=== PATIENT | female | born 1980 | race Caucasian/White ===

== ENCOUNTER 2017-02-22 13:04 | Emergency (ER) | payer MEDICAID ==
[~2017-02-22] VITALS: Ht 170.2 cm; Wt 52.0 kg
[~2017-02-22 13:04] MED LIST: ADDE20XR PO; BACT800T5 PO; CARA1TAB2 PO; GABA100C4 PO; GEOD60CA PO; MORP30SU PO
[2017-02-22 13:25] VITALS: BP 102/76; PULSE 85; RESP 18; TEMP 98.2; O2SAT 97
[2017-02-22] MEDS ORDERED: HYDR-3535 PO (13:49)
[2017-02-22] MEDS ORDERED: AMBI10TA PO (13:49)
[2017-02-22] MEDS ORDERED: MORP1TAB25 PO (13:49)
[2017-02-22] MEDS ORDERED: ZIPR40 PO (13:49)
[2017-02-22] MEDS ORDERED: XANA2TAB2 PO (13:49)
[2017-02-22] MEDS ORDERED: VIST50CA PO (13:49)
[2017-02-22] MEDS ORDERED: ALPRAZolam 1 MG TAB PO ONE (14:15)
--- NOTE | 2017-02-22 14:31 | PD ---
HPI Chief Complaint: Medication Refill Request Time Seen by Provider: 14:01 Travel History International Travel<30 days: No Contact w/Intl Traveler<30days: No Traveled to known affect area: No History of Present Illness HPI 37yo F with PMH of depression, PTSD presents to the ED requesting medication refill for her anxiety medications. States she takes xanax 2mg, ambien, geodon and has appointment with psychiatrist next week. States she ran out of her medication 3 days ago. Pt has a history of overdose. Denies any suicidal ideation, homicidal ideation, visual or auditory hallucinations. Denies any fever, chest pain, sob, n/v, abdominal pain, focal weakness or numbness. PFSH Past Medical History Arthritis: No Asthma: No Autoimmune Disease: Yes (fibromyalgia) Blood Disorders: No Bipolar Disorder: Yes Anxiety: Yes Depression: Yes Heart Rhythm Problems: No Cancer: Yes (OVARIAN, UTERINE, BLADDER 2004, BREAST) Cardiovascular Problems: No High Cholesterol: No Chemotherapy: Yes Chest Pain: No Congestive Heart Failure: No COPD: Yes Cerebrovascular Accident: No Coronary Artery Disease: Yes Diabetes: No Diminished Hearing: No Endocrine: No Fibromyalgia: Yes Gastrointestinal Disorders: Yes GERD: No Glaucoma: No Genitourinary: Yes (bladder cancer) Headaches: Yes (tmj) Hepatitis: No Hiatal Hernia: No Hypertension: No Immune Disorder: No Implanted Vascular Access Dvce: No Kidney Stones: No Medical other: Yes (LUPUS) Musculoskeletal: No Neurologic: No Psychiatric: Yes (PTSD) Reproductive: Yes (uterine/ovarian cancer) Respiratory: Yes (resp arrest from drug overdose) Immunizations Current: Yes Migraines: Yes Myocardial Infarction: No Radiation Therapy: Yes Renal Failure: No Schizophrenia: Yes Seizures: Yes Sickle Cell Disease: No Sleep Apnea: No Thyroid Disease: No Ulcer: Yes Tetanus Vaccination: > 5 Years Influenza Vaccination: Yes ?: Not Menopausal: Yes : 2 Para: 2 Miscarriage: 0 : 0 Past Surgical History Abdominal Surgery: Yes AICD: No Appendectomy: No Arteriovenous Shunt: No Cardiac Surgery: No Cholecystectomy: Yes Ear Surgery: No Endocrine Surgery: No Eye Surgery: No Genitourinary Surgery: No Gynecologic Surgery: Yes (LEEP) Hysterectomy: Yes Insulin Pump: No Joint Replacement: No Neurologic Surgery: No Oral Surgery: Yes (top plate) Pacemaker: No Thoracic Surgery: No Other Surgery: Yes (hysterectomy) Social History Alcohol Use: Yes (WINE [employer]) Tobacco Use: Yes (1 PPD) Substance Use: Yes (POLY SUBSTANCE ABUSE (DENIES)) Allergies-Medications (Allergen,Severity, Reaction): Coded Allergies: Ativan (Verified Allergy, Severe, Rash, 02/22/17) Reported Meds & Prescriptions Reported Meds & Active Scripts Active Reported Geodon (Ziprasidone) 40 Mg Cap 40 Mg PO BID Vistaril (Hydroxyzine Pamoate) 50 Mg Cap 50 Mg PO TID Ambien (Zolpidem Tartrate) 10 Mg Tab 10 Mg PO HS PRN Xanax (Alprazolam) 2 Mg Tab 2 Mg PO Q8H PRN Lortab (Hydrocodone-Acetaminophen) 10-325 Mg Tab 1 Tab PO Q8HR PRN Morphine ER (Morphine Sulfate) 30 Mg Tab 15 Mg PO Q8H Review of Systems Except as stated in HPI: all other systems reviewed are Neg Physical Exam Narrative GENERAL: 37yo F not in distresss. SKIN: Focused skin assessment warm/dry. HEAD: Atraumatic. Normocephalic. EYES: Pupils equal and round. EOMI. No scleral icterus. No injection or drainage. ENT: No nasal bleeding or discharge. Mucous membranes pink and moist. NECK: Trachea midline. No JVD. CARDIOVASCULAR: Regular rate and rhythm. No murmur appreciated. RESPIRATORY: No accessory muscle use. Clear to auscultation. Breath sounds equal bilaterally. GASTROINTESTINAL: Abdomen soft, non-tender, nondistended.No rebound tenderness or guarding. MUSCULOSKELETAL: No obvious deformities. No clubbing. No cyanosis. No edema. NEUROLOGICAL: Awake and alert. No obvious cranial nerve deficits. Motor grossly within normal limits. Normal speech. PSYCHIATRIC: Anxious appearing. Data Data Last Documented VS Vital Signs Date Time Temp Pulse Resp B/P Pulse Ox O2 Delivery O2 Flow Rate FiO2 02/22/17 13:25 98.2 85 18 102/76 97 Orders Alprazolam (Xanax) (02/22/17 14:15) [facility] Medical Decision Making Medical Screen Exam Complete: Yes Emergency Medical Condition: Yes Differential Diagnosis Anxiety vs. depression vs. malingering v.s substance abuse Narrative Course 37yo F with depression, PTSD here requesting medication refill after running out of her medications 3 days ago. Given pt's history of overdose, I do not feel comfortable prescribing her these medications. Will give her her xanax dose for today and have her follow up with her psychiatrist as outpatient. Return precautions given. Diagnosis Primary Impression: Anxiety Patient Instructions: General Instructions Departure Forms: Tests/Procedures Additional Instructions: Please follow up with your psychiatrist as outpatient. Return to the ED if symptoms worsen. Med/Other Pt SpecificInfo: No Change to Meds Disposition: 01 DISCHARGE HOME Condition: Stable Samantha Pedersen DO Feb 22, 2017 14:31
== END 2017-02-22 15:04 | disposition home or self-care (01) ==
LOC: PHED 13:04
DX: F41.9 Anxiety disorder, unspecified (principal); Z76.0 Encounter for issue of repeat prescription; F43.10 Post-traumatic stress disorder, unspecified; F17.210 Nicotine dependence, cigarettes, uncomplicated; J44.9 Chronic obstructive pulmonary disease, unspecified; M79.7 Fibromyalgia; F20.9 Schizophrenia, unspecified
CPT/HCPCS: 99283

== ENCOUNTER 2017-02-23 09:47 | Emergency (ER) | payer MEDICAID ==
[~2017-02-23] VITALS: Ht 170.2 cm; Wt 51.0 kg
[~2017-02-23 09:47] MED LIST changes: -ADDE20XR PO; +AMBI10TA PO; -BACT800T5 PO; -CARA1TAB2 PO; -GABA100C4 PO; -GEOD60CA PO; +HYDR-3535 PO; +MORP1TAB25 PO; -MORP30SU PO; +VIST50CA PO; +XANA2TAB2 PO; +ZIPR40 PO
[2017-02-23 09:59] VITALS: BP 91/68; PULSE 90; RESP 15; TEMP 98.7; O2SAT 99
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
== END 2017-02-23 10:46 | disposition home or self-care (01) ==
LOC: PHEFT 09:47
DX: Z79.899 Other long term (current) drug therapy (principal); Z72.0 Tobacco use; Z86.59 Personal history of other mental and behavioral disorders; Z87.39 Personal history of other diseases of the musculoskeletal system and connective tissue; Z86.69 Personal history of other diseases of the nervous system and sense organs
CPT/HCPCS: 99281

== ENCOUNTER 2017-05-21 15:28 | Emergency (ER) | payer MEDICAID ==
[~2017-05-21] VITALS: Ht 170.2 cm; Wt 48.0 kg
[2017-05-21 15:30] VITALS: BP 123/79; PULSE 108; RESP 13; TEMP 98.8; O2SAT 100
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
[2017-05-21] MEDS ORDERED: ACETAMINOPHEN/HYDROcodone 325 MG/10 MG TAB PO ONE (16:15)
[2017-05-21 16:46] LABS: AUTOMATED NEUTROPHIL # 2.5 TH/MM3 (1.8-7.7); BASOPHIL % 0.7 % (0.0-2.0); EOSINOPHIL # 0.3 TH/MM3 (0-0.4); EOSINOPHIL % 5.2 % (0.0-4.0); HEMATOCRIT 37.7 % (35.0-46.0); HEMO FLAGS DIFF FINAL; LYMPH % 38.9 % (9.0-44.0); LYMPHOCYTE # 1.9 TH/MM3 (1.0-4.8); MEAN CELL VOLUME 88.4 FL (80.0-100.0); MEAN CORPUSCULAR HEMOGLOBIN 29.3 PG (27.0-34.0); MEAN CORPUSCULAR HGB CONC 33.1 % (32.0-36.0); MONO % 4.8 % (0.0-8.0); NEUT % 50.4 % (16.0-70.0); PLATELET COUNT 233 TH/MM3 (150-450); RED BLOOD COUNT 4.27 MIL/MM3 (4.00-5.30); RED CELL DISTRIBUTION WIDTH 14.5 % (11.6-17.2)
[2017-05-21 17:09] LABS: ALT (GPT) 17 U/L (10-53); ANION GAP 4 MEQ/L (5-15); AST (GOT) 13 U/L (15-37); BLOOD UREA NITROGEN 5 MG/DL (7-18); CHLORIDE 108 MEQ/L (98-107); GLOMERULAR FILTRATION RATE 98 ML/MIN (>89); POTASSIUM 4.1 MEQ/L (3.5-5.1); SODIUM (NA) 141 MEQ/L (136-145)
[2017-05-21 17:12] LABS: ALKALINE PHOSPHATASE 66 U/L (45-117); TOTAL BILIRUBIN ADULT 0.2 MG/DL (0.2-1.0)
[2017-05-21 23:37] VITALS: BP 127/80; PULSE 68; RESP 18; TEMP 98; O2SAT 100
[2017-05-22 04:09] VITALS: BP 104/58; PULSE 57; RESP 17; TEMP 98.1; O2SAT 98
[2017-05-22 06:23] VITALS: BP 121/79; PULSE 79; RESP 18
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
--- NOTE | 2017-05-22 15:44 | PD ---
Physical Exam Time Seen by Provider: 15:42 YANNA Cardenas has evaluated the patient and the patient will be discharged home. Data Data Last Documented VS Vital Signs Date Time Temp Pulse Resp B/P (MAP) Pulse Ox O2 Delivery O2 Flow Rate FiO2 05/22/17 06:23 79 18 121/79 (93) 05/22/17 04:09 98.1 98 Room Air Orders Orders Complete Blood Count With Diff (05/21/17 16:05) Comprehensive Metabolic Panel (05/21/17 16:05) Ed Urine Pregnancytest Poc (05/21/17 16:05) Psych Screen (05/21/17 16:05) Drug Screen, Random Urine (05/21/17 16:05) Acetamin-Hydrocod 325-10 Mg ([place] 10-32 (05/21/17 16:15) Diet Regular Basic (05/21/17 Dinner) Diet Regular Basic (05/22/17 Breakfast) Diet Regular Basic (05/22/17 Lunch) Labs Laboratory Tests Test 05/21/17 15:30 05/21/17 17:10 White Blood Count 5.0 TH/MM3 Red Blood Count 4.27 MIL/MM3 Hemoglobin 12.5 GM/DL Hematocrit 37.7 % Mean Corpuscular Volume 88.4 FL Mean Corpuscular Hemoglobin 29.3 PG Mean Corpuscular Hemoglobin Concent 33.1 % Red Cell Distribution Width 14.5 % Platelet Count 233 TH/MM3 Mean Platelet Volume 7.5 FL Neutrophils (%) (Auto) 50.4 % Lymphocytes (%) (Auto) 38.9 % Monocytes (%) (Auto) 4.8 % Eosinophils (%) (Auto) 5.2 % Basophils (%) (Auto) 0.7 % Neutrophils # (Auto) 2.5 TH/MM3 Lymphocytes # (Auto) 1.9 TH/MM3 Monocytes # (Auto) 0.2 TH/MM3 Eosinophils # (Auto) 0.3 TH/MM3 Basophils # (Auto) 0.0 TH/MM3 CBC Comment DIFF FINAL Differential Comment Blood Urea Nitrogen 5 MG/DL Creatinine 0.67 MG/DL Random Glucose 82 MG/DL Total Protein 6.5 GM/DL Albumin 3.7 GM/DL Calcium Level 8.4 MG/DL Alkaline Phosphatase 66 U/L Aspartate Amino Transf (AST/SGOT) 13 U/L Alanine Aminotransferase (ALT/SGPT) 17 U/L Total Bilirubin 0.2 MG/DL Sodium Level 141 MEQ/L Potassium Level 4.1 MEQ/L Chloride Level 108 MEQ/L Carbon Dioxide Level 29.0 MEQ/L Anion Gap 4 MEQ/L Estimat Glomerular Filtration Rate 98 ML/MIN Urine Opiates Screen POS Urine Barbiturates Screen NEG Urine Amphetamines Screen NEG Urine Benzodiazepines Screen POS Urine Cocaine Screen POS Urine Cannabinoids Screen POS MDM Supervised Visit with OLIVIA: No Narrative Course YANNA Barnett has evaluated the patient, lifted the [place] act and the patient will be discharged home. Patient contracts safety. Denies suicidal or homicidal ideations. Patient will be provided community resource packet to [facility]/ [facility] for follow-up. Patient has follow-up appointment next month with Dr. Barragan. Has friends and family for support. Patient is medically cleared for discharge. Diagnosis Primary Impression: Depressed Qualified Codes: F32.9 - Major depressive disorder, single episode, unspecified Additional Impressions: Difficulty refilling prescriptions Polysubstance abuse Referrals: [facility] (Out patient) Primary Care Physician Psychiatrist Ramiro [facility] Patient Instructions: Depression (ED), General Instructions, Polysubstance Abuse (ED) Additional Instruction: Contract safety to your self and others Stop using drugs Follow-up with psychiatry Follow-up with primary care provider Follow-up with Claudio Chun Return to the emergency department immediately with worsening of symptoms Med/Other Pt SpecificInfo: No Meds Exist/No RX given Disposition: 01 DISCHARGE HOME Condition: Stable Giselle King May 22, 2017 15:44
== END 2017-05-22 15:50 | disposition home or self-care (01) ==
LOC: NEPD 15:28 → NEPJ 05-22 15:50
DX: F32.9 Major depressive disorder, single episode, unspecified (principal); F19.10 Other psychoactive substance abuse, uncomplicated; F43.22 Adjustment disorder with anxiety; F17.200 Nicotine dependence, unspecified, uncomplicated; Z79.899 Other long term (current) drug therapy; Z86.59 Personal history of other mental and behavioral disorders; Z87.39 Personal history of other diseases of the musculoskeletal system and connective tissue; Z87.09 Personal history of other diseases of the respiratory system; Z86.79 Personal history of other diseases of the circulatory system; Z87.19 Personal history of other diseases of the digestive system; Z86.69 Personal history of other diseases of the nervous system and sense organs; Z85.43 Personal history of malignant neoplasm of ovary; Z85.42 Personal history of malignant neoplasm of other parts of uterus; Z85.51 Personal history of malignant neoplasm of bladder; Z85.3 Personal history of malignant neoplasm of breast
CPT/HCPCS: 80053; 80307; 84703; 85025; 99284